=== PATIENT | female | born 1990 | race Caucasian/White ===

== ENCOUNTER 2022-09-04 10:57 | Emergency (ER) | payer OTHER, MEDICAID, SELFPAY ==
--- NOTE | ~2022-09-04 | XR_ITS ---
EXAMINATION: XR chest 2V CLINICAL INFORMATION: Reason for Exam cough/sob/sputum production COMPARISON: No prior chest x-ray available in our system for comparison at the time of this dictation. TECHNIQUE: XR chest 2V Lungs and Linda: Both lungs are clear. Pleura: Normal. Costophrenic angles are sharp. No pneumothorax. Heart: The heart is normal in size. Mediastinum: The mediastinum is within normal limits.. Bones: Skeletal structures included are normal for patient's age. XR/XR chest 2V IMPRESSION: Normal chest x-ray.
[2022-09-04 11:06] VITALS: BP 158/98; PULSE 97; RESP 18; TEMP 36.8; O2SAT 99; BMI 35.9
--- NOTE | 2022-09-04 11:08 | ED.GENADULT ---
HPI - General Adult General Chief complaint: Upper Respiratory Symptoms <CARIE Baeza - Last Filed: 09/04/22 11:09> Stated complaint: nasalcongestion <CARIE Baeza - Last Filed: 09/04/22 11:09> Time Seen by Provider: 09/04/22 12:12 <CARIE Baeza - Last Filed: 09/04/22 11:09> Source: patient <CARIE Alford - Last Filed: 09/04/22 14:06> Mode of arrival: ambulatory <CARIE Alford - Last Filed: 09/04/22 14:06> Limitations: no limitations <CARIE Alford Last Filed: 09/04/22 14:06> History of Present Illness HPI narrative: 31yoF presenting to the ER with URI complaints over the past 1-2 weeks worse today. She reports intermittent headaches, nasal congestion/rhinorrhea with sinus pressure pain And a intermittent productive cough. She reports her symptoms improve when she has fresh air goes outside. She reports some family members are positive for influenza. She denies any other sick contacts. She denies recent travel. She denies any fevers, neck pain/stiffness, trouble swallowing or breathing, sore throat, chest pain or shortness of breath, dyspnea on exertion, orthopnea, palpitations, paresthesias, nausea/vomiting/diarrhea, abdominal pain, back pain, flank pain, dysuria, lower extremity edema or calf tenderness, rashes or any other symptoms complaints or concerns at this time. <CARIE Alford - Last Filed: 09/04/22 14:06> MD complaint: URI complaints <CARIE Alford - Last Filed: 09/04/22 14:06> Onset (ago): week(s) (1-2 weeks ) <CARIE Alford Last Filed: 09/04/22 14:06> Related Data Home medications: Previous Rx's Medication Instructions Recorded albuterol sulfate 90 mcg/actuation 1 inh inhalation QID PRN shortness 09/04/22 aerosol inhaler of breath or wheezing #8.5 grams codeine 10 mg-guaifenesin 100 mg/5 5 ml PO Q6H PRN cold symptoms #120 09/04/22 mL oral liquid (Guaifenesin AC) mL doxycycline monohydrate 100 mg 100 mg PO BID Sinusitis 7 days #14 09/04/22 tablet tabs <CARIE Baeza - Last Filed: 09/04/22 11:09> Allergies/adverse reactions: Allergies Allergy/AdvReac Type Severity Reaction Status Date / Time cefaclor [From [facility]] Allergy Unknown UNKNOWN Verified 09/04/22 11:06 <CARIE Baeza - Last Filed: 09/04/22 11:09> Review of Systems Review of Systems: Constitutional : No Weight loss, No Fever, + Chills, No Night Sweats, + Fatigue, + Malaise ENT/Mouth : No Hearing loss, No Ear Pain, + Nasal Congestion, No Sinus Pain, No Hoarseness, No sore throat, + Rhinorrhea, No Swallowing Difficulty Eyes: No Eye Pain, No Swelling, No Redness, No Foreign Body, No Discharge, No Vision Changes Cardiovascular : No Chest Pain, No SOB, No Dyspnea on Exertion, No Orthopnea, No Edema, No Palpitations Respiratory : + Cough, + Sputum, No Wheezing, No Smoke Exposure, No Dyspnea Gastrointestinal : No Nausea, No Vomiting, No Diarrhea, No Constipation, No abdominal Pain, No Hematochezia, No Melena Genitourinary : no irregular bleeding, No Dysuria, No Urinary Frequency, No Hematuria, No Urinary Incontinence, No Urgency, No Flank Pain, No Urinary Flow Changes, No Hesitancy Musculoskeletal : No joint pain, + Myalgias, No Joint Swelling Skin : No Skin Lesions, No rash Neuro : No Weakness, No Numbness, No Paresthesias, No Loss of Consciousness, No Dizziness, + intermittent Headache Psych : No Anxiety/Panic, No Depression, No SI/HI/AH/VH, No Social Issues, Heme/Lymph: No Bruising, No Bleeding,No Lymphadenopathy Endocrine : No Polyuria, No Polydipsia, No Temperature Intolerance <CARIE Alford - Last Filed: 09/04/22 14:06> Yes all other systems are reviewed and are negative <CARIE Alford - Last Filed: 09/04/22 14:06> COUNT INCLUDES THE [facility] Past Medical History Attestation statement: The following information was validated with the patient. <CARIE Alford - Last Filed: 09/04/22 14:06> Source: old records reviewed and nursing notes reviewed <CARIE Alford - Last Filed: 09/04/22 14:06> Social History Social History: Social History Advance Directives: No Advance Directives Information Provided: No <CARIE Baeza - Last Filed: 09/04/22 11:09> Physical Exam ED Vital Signs: Vital Signs - 24 hr 09/04/22 11:06 Temperature 98.3 F Pulse Rate 97 Respiratory Rate 18 Blood Pressure 158/98 H Pulse Oximetry 99 Oxygen Delivery Method Room Air BMI result Body Mass Index 35.9 <CARIE Baeza - Last Filed: 09/04/22 11:09> Vital Signs - 24 hr 09/04/22 11:06 Temperature 98.3 F Pulse Rate 97 Respiratory Rate 18 Blood Pressure 158/98 H Pulse Oximetry 99 Oxygen Delivery Method Room Air BMI result Body Mass Index 35.9 vital signs have been reviewed as normal and appeared to be correct. Blood pressure 158/98. Heart rate normal. Respiration rate normal. Temperature normal. Oxygen saturation normal. <CARIE Alford - Last Filed: 09/04/22 14:06> Appearance: Alert. Oriented X3. No acute distress. Head: Normal external exam. Normocephalic. Atraumatic. Eyes: PERRLA. EOMI. Conjunctiva and sclera normal. Eyelids normal. ENT: EAC normal. TM's Normal. Patient with sinus pressure pain. Pharynx normal. Uvula midline. Moist mucous membranes. No lesions/ulcerations or masses noted on the tongue. Normal voice. No trismus noted. No drooling noted. No muffled voice noted. Neck: Normal inspection. Neck supple. FROM. No adenopathy. Thyroid Normal. No tracheal deviation noted. No crepitus is noted. No meningeal signs. No neck mass noted. No signs of trauma noted. CVS: Normal heart rate and rhythm. Heart sound normal. Pulses normal throughout. No murmurs/rales/gallops. Respiratory: No respiratory distress. Painless inspiration. Breath sounds normal. No wheezes/rales/rhonchi noted. Chest nontender. No crepitus is noted. No signs of trauma noted. No accessory muscle usage noted or decreased air movement noted. No signs of trauma. Abdomen: Soft and nontender. Back: Full range of motion noted. Nontender. Skin: Skin warm and dry. Normal skin color. Normal skin turgor. No rashes/lesions/lacerations noted. Extremities: Extremities exhibit normal range of motion and nontender. Neuro: Oriented X 3. No motor deficit. No sensory deficit. Reflexes normal. Normal steady gait. No focal neuro deficits noted. CN's II-XII intact bilaterally? Vascular: + radial pulses/+ 2 distal pedal pulses/+2 dorsalis pedis b/l. Normal cap refill. No cyanosis noted to upper extremity nails and lower extremity toes nails. <CARIE Alford - Last Filed: 09/04/22 14:06> Course Course Course Narrative: RME performed by Whitley Boyce PA-C. Edward is a 31 year old female presenting to the emergency department with nasal congestion. Patient states that since yesterday she has had nasal congestion and felt generally unwell. Patient states that she has had family members who are positive for influenza. COVID/RSV/Influenza swab ordered. Patient to be placed back in the waiting room pending results and room availability. <CARIE Baeza - Last Filed: 09/04/22 11:09> Reevaluation(s) Reevaluation #1: 31yoF presenting to the ER with URI complaints over the past 1-2 weeks worse today. She reports intermittent headaches, nasal congestion/rhinorrhea with sinus pressure pain And a intermittent productive cough. She reports her symptoms improve when she has fresh air goes outside. She reports some family members are positive for influenza. COVID/RSV/flu swab and chest x-ray ordered pending at this time. Will re-evaluate. <CARIE Alford - Last Filed: 09/04/22 14:06> Time: 12:20 <CARIE Alford Last Filed: 09/04/22 14:06> Reevaluation #2: - patient negative for COVID/RSV/flu. Chest x-ray is still pending although when I reviewed the chest x-ray appears normal. Therefore at this time will DC home with antibiotics and symptomatic treatment for possible sinusitis/bronchitis and instructions to follow-up with PCP and to return if any new or worsening symptoms. Patient understands agrees with this plan. <CARIE Alford - Last Filed: 09/04/22 14:06> Time: 13:48 <CARIE Alford - Last Filed: 09/04/22 14:06> Medical Decision Making Lab Data MDM Lab Attestation statement: I reviewed the patient's lab results. <CARIE Alford Last Filed: 09/04/22 14:06> Labs: Lab Results 09/04/22 Range/Units 11:36 Influenza Type A (PCR) NEGATIVE (Negative) Influenza Type B (PCR) NEGATIVE (Negative) RSV RNA Qual (PCR) NEGATIVE (Negative) SARS-CoV-2 RNA (RT-PCR) NEGATIVE (Negative) <CARIE Baeza - Last Filed: 09/04/22 11:09> Lab Results 09/04/22 Range/Units 11:36 Influenza Type A (PCR) NEGATIVE (Negative) Influenza Type B (PCR) NEGATIVE (Negative) RSV RNA Qual (PCR) NEGATIVE (Negative) SARS-CoV-2 RNA (RT-PCR) NEGATIVE (Negative) <CARIE Alford - Last Filed: 09/04/22 14:06> Independent Interpretation I performed an independent interpretation of an: Plain X-Ray <CARIE Alford Last Filed: 09/04/22 14:06> Interpretation: TECHNIQUE: XR chest 2V Lungs and Linda: Both lungs are clear. Pleura: Normal. Costophrenic angles are sharp. No pneumothorax. Heart: The heart is normal in size. Mediastinum: The mediastinum is within normal limits.. Bones: Skeletal structures included are normal for patient's age. XR/XR chest 2V IMPRESSION: Normal chest x-ray. <CARIE Alford Last Filed: 09/04/22 14:06> Radiology Impression Discussion of test interpretation with radiology: I have reviewed the radiologist's reading. <CARIE Alford Last Filed: 09/04/22 14:06> Discharge Plan Discharge Clinical Impression: Sinusitis, Bronchitis <CARIE Baeza Last Filed: 09/04/22 11:09> Patient Disposition: Home, Self-Care <CARIE Baeza Last Filed: 09/04/22 11:09> Instructions: Sinusitis (ED) <CARIE Baeza - Last Filed: 09/04/22 11:09> Prescriptions: New doxycycline monohydrate 100 mg tablet 100 mg PO BID 7 Days Qty: 14 0RF codeine-guaifenesin [Guaifenesin AC] 10-100 mg/5 mL liquid 5 ml PO Q6H PRN (Reason: cold symptoms) Qty: 120 0RF albuterol sulfate 90 mcg/actuation HFA aerosol inhaler 1 inh inhalation QID PRN (Reason: shortness of breath or wheezing) Qty: 8.5 0RF <CARIE Baeza - Last Filed: 09/04/22 11:09> Referrals: Physician,None [Primary Care Provider] - 2 days <CARIE Baeza - Last Filed: 09/04/22 11:09> Stand Alone Forms: Work/School Release <CARIE Baeza - Last Filed: 09/04/22 11:09> Interventions: ED Discharge Assessment Last Done: 09/04/22 13:48 <CARIE Baeza - Last Filed: 09/04/22 11:09> Discharge Date/Time: 09/04/22 13:49 <CARIE Baeza - Last Filed: 09/04/22 11:09>
[2022-09-04 12:29] LABS: Influenza A PCR NEGATIVE (Negative); Influenza B PCR NEGATIVE (Negative); Resp Syncy Virus RNA Qual PCR NEGATIVE (Negative); SARS COV2 PCR INHOUSE NEGATIVE (Negative)
== END 2022-09-04 13:49 | disposition home or self-care (01) ==
PROVIDERS: Emergency Provider Emergency Medicine
DX: J32.9 Chronic sinusitis, unspecified (principal); J40 Bronchitis, not specified as acute or chronic; Z20.828 Contact with and (suspected) exposure to other viral communicable diseases
CPT/HCPCS: 0241U; 71046; 99283

== ENCOUNTER 2023-06-22 08:40 | Emergency (ER) | payer OTHER, MEDICAID, SELFPAY ==
--- NOTE | ~2023-06-22 | CT_ITS ---
EXAMINATION: CT ABDOMEN AND PELVIS WITHOUT CONTRAST CLINICAL INFORMATION: 72-year-old female with epigastric and abdominal pain COMPARISON: None available. TECHNIQUE: Multidetector volumetric imaging was performed from the superior aspect of the liver through the pubic symphysis. Sagittal and coronal reformatted images were obtained on the technologist's workstation. This CT examination was performed using dose optimization techniques as appropriate, variously including the following: *Automated exposure control *Adjustment of mA and/or kV according to patient size (this includes techniques or standardized protocols for targeted exams where dose is matched to indication/reason for exam; i.e. extremities or head) *Use of iterative reconstruction technique DLP: 661.00 mGy-cm FINDINGS: LUNG BASES: The visualized lung bases are unremarkable. LIVER, GALLBLADDER, AND BILIARY TREE: Liver is of low attenuation without intrahepatic masses or ductal dilatation. The Gallbladder is well distended No evidence of cholelithiasis or cholecystitis PANCREAS: Unremarkable. SPLEEN: Unremarkable. ADRENAL GLANDS: Unremarkable. KIDNEYS AND URETERS: The kidneys are normal in size, shape, and attenuation. No hydronephrosis, hydroureter, or calculi seen. No perinephric stranding. BLADDER: Unremarkable. GASTROINTESTINAL TRACT: The small and large bowel are unremarkable. The appendix is unremarkable. ABDOMINAL WALL: There is small fat-containing umbilical hernia LYMPH NODES: Normal. VASCULAR: Unremarkable. PELVIC VISCERA: There is small amount of pelvic fluid identified. Ovaries are bilaterally enlarged with possible cysts or follicles. If clinically indicated follow-up by pelvic ultrasound. There is calcification in left adnexa OSSEOUS STRUCTURES: Unremarkable. CT/CT abdomen pelvis wo IV con IMPRESSION: 1. Hepatic steatosis. 2. Small amount of free fluid in the pelvis and prominent ovaries bilaterally. If clinically indicated follow-up by pelvic ultrasound. 3. Small fat-containing umbilical hernia. Fleischner guidelines were followed.
[2023-06-22 08:48] VITALS: BP 124/83; PULSE 97; RESP 18; TEMP 36.4; O2SAT 97; BMI 36.1
[2023-06-22 09:06] LABS: MANUAL DIFF FLAG NO
[2023-06-22 09:09] LABS: Basophils Percent Auto 0.4 % (0-2); Eosinophils Absolute Auto 0.1 X10*3/uL (0.0-0.4); Eosinophils Percent Auto 0.8 % (0-4); Hematocrit 40.1 % (37.0-47.0); Hemoglobin 13.3 g/dl (12.0-16.0); Imm Gran Abs Auto 0.02 X10*3/uL (0.00-0.03); Imm Gran Pct Auto 0.3 % (0.0-0.4); Lymphocytes Absolute Auto 1.3 X10*3/uL (1.2-4.9); Lymphocytes Percent Auto 18.2 % (20-40); Mean Corpuscular HGB Conc 33.2 g/dl (31.0-35.0); Mean Corpuscular Hemoglobin 30.2 pg (27.0-33.0); Mean Corpuscular Volume 91.1 fL (80.0-98.0); Mean Platelet Volume 10.9 fL (9.4-12.3); Monocytes Absolute Auto 0.7 X10*3/uL (0.1-1.2); Monocytes Percent Auto 10.1 % (2-11); Neutrophils Percent Auto 70.2 % (45-73); Platelet Count 284 X10*3/uL (160-400); Red Cell Distribution Width 13.3 % (11.0-16.0); White Blood Count 7.1 X10*3/uL (4.8-10.8)
[2023-06-22 09:25] LABS: Alanine Aminotransferase 13 U/L (0-31); Albumin Level 4.1 g/dL (3.5-5.0); Alkaline Phosphatase 62 U/L (39-117); Anion Gap 15 (12-20); Aspartate Amino Transferase 19 U/L (5-31); Bilirubin Direct 0.2 mg/dL (0.0-0.5); Bilirubin Total 0.6 mg/dL (0.0-1.0); Blood Urea Nitrogen 8 mg/dL (9-16); Calcium 9.4 mg/dL (8.4-10.2); Carbon Dioxide 23 mmol/L (22-29); Chloride 105 mmol/L (96-108); Creatinine Clr Calc Pharmacy 106.2; Estimated Glomerular Filt Rate > 60; Glucose Random 91 mg/dL (60-115); Lipase 11 U/L (8-78); Potassium 3.7 mmol/L (3.3-5.1); Sodium 139 mmol/L (135-145); Total Protein 7.3 g/dL (6.5-8.0)
--- NOTE | 2023-06-22 09:34 | ED_ITS ---
HPI - Abdominal Pain General Chief Complaint: Abdominal Pain Stated Complaint: Abd pain/Headache Time Seen by Provider: 06/22/23 09:28 Source: patient Mode of arrival: ambulatory Limitations: no limitations History of Present Illness HPI narrative: 32 year old female with no significant pmhx presents to the ED this morning with sharp abdominal pain x2 days. Patient reports flying back from [place] 2 days ago, eat at [employer] at [place] and 45 minutes later while driving began to have sharp abdominal pain. Pain was intermittent and became constant yesterday. Describes this as a sharp, stabbing pain that originated in her left lower quadrant and moved to her epigastric region. Pain is worse with movement. Additionally endorses 2 episodes of loose stools. Reports brushing her teeth with the water in [place]. No hematochezia or melena. Last BM yesterday morning. Passed gas this morning. Admits to right frontal migraine headache intermittently over the last few days. Has a history of migraines and feels like her typical. Denies anorexia. fever, chills, dizziness, sore throat, cough, shortness of breath, wheezing, nausea or vomiting, dysuria, hematuria, vaginal discharge, lower extremity pain swelling. States she is sexually active however no concern for STIs. History of tubal ligation. Related Data Previous Rx's Medication Instructions Recorded albuterol sulfate 90 mcg/actuation 1 inh inhalation QID PRN shortness 09/04/22 aerosol inhaler of breath or wheezing #8.5 grams codeine 10 mg-guaifenesin 100 mg/5 5 ml PO Q6H PRN cold symptoms #120 09/04/22 mL oral liquid (Guaifenesin AC) mL doxycycline monohydrate 100 mg 100 mg PO BID Sinusitis 7 days #14 09/04/22 tablet tabs Allergies Allergy/AdvReac Type Severity Reaction Status Date / Time cefaclor [From [facility]] Allergy Unknown UNKNOWN Verified 09/04/22 11:06 Review of Systems Review of Systems Constitutional: No fever, chills, fatigue, night sweats, weight changes ENT/Mouth: No ear pain, hearing loss, nasal congestion, sinus pain, rhinorrhea, sore throat Eyes: No eye pain, swelling, redness, vision changes, discharge Cardio: No chest pain, palpitations, PICKETT, orthopnea, peripheral edema Pulm: No SOB, cough, sputum, wheezing, dyspnea, hemoptysis GI: No nausea, vomiting, hematemesis, +abdominal pain, +diarrhea, No constipation, hematochezia, melena : No irregular bleeding, dysuria, frequency, urgency, hesitancy, hematuria, flank pain MSK: No back pain, neck pain, joint pain, myalgias Skin: No lesions, rashes Neuro: No weakness, numbness, paresthesias, LOC, dizziness, +headache All other systems reviewed and are negative. [facility] Past Medical History Attestation statement: The following information was validated with the patient. Source: old records reviewed and nursing notes reviewed Social History Social History Smoked in Last 30 Days: No Use of substances other than those prescribed or required for medical reasons: Yes Substance Use Type: Marijuana Substance Use Frequency: Occasionally Advance Directives: No Advance Directives Information Provided: No Physical Exam ED Vital Signs: Vital Signs - 24 hr 06/22/23 08:48 06/22/23 10:00 Temperature 97.5 F Pulse Rate 97 Respiratory Rate 18 16 Blood Pressure 124/83 Pulse Oximetry 97 Oxygen Delivery Method Room Air BMI result Body Mass Index 36.1 Vital signs stable. Const General: cooperative, healthy appearing, comfortable, no acute distress, alert and awake; No diaphoretic Nutritional Appearance: average body habitus Orientation/consciousness: patient oriented x3 Limitations: no limitations [facility] Head: Yes normal to inspection Ears: hearing grossly normal bilaterally General nose exam: Normal external nose present Mouth: Normal oral and palatal mucosa present and moist mucous membranes Throat: Yes posterior oropharynx normal, Yes tonsils normal, Yes uvula midline and Yes abnormal tonsil Eyes General: appearance normal, both eyes and all related structures Conjunctivae: conjunctivae normal Sclerae: sclerae normal Pupils: Equal, round and reactive pupils present EOM: EOMs intact bilaterally Neck Neck: Yes normal visual inspection, Yes no lymphadenopathy and Yes no meningeal signs Resp Effort & Inspection: normal respiratory effort and able to speak in complete sentences Auscultation: clear to auscultation bilaterally Cardio Rate: regular rate Rhythm: regular rhythm Peripheral pulses: radial pulses present GI Other: + Abdomen is soft, nondistended, tender to palpation of the epigastric region and left lower quadrant. No rebound tenderness or guarding. Normoactive bowel sounds x4. Inspection: Yes normal to inspection Rectal Exam - Female: deferred General: Yes no CVA tenderness Back/Spine/Pelvis Back: no CVA tenderness Skin General skin exam: no rashes or lesions noted Neuro General: patient oriented x3, gait normal, moves all extremities and no meningeal signs Cranial nerves: Yes CN's II-XII intact bilaterally and Yes Equal, round and reactive pupils present Extrem General: Yes normal to inspection and Yes full ROM Course Course Course Narrative: 1003-- CBC without leukocytosis or anemia. Chemistry without acute electrolyte abnormalities requiring intervention. Lipase WNL. Pending COVID, UA, CT abdomen pelvis. 1220-- COVID negative. Urine without infection or . CT abdomen/ pelvis showing bilateral ovarian cyst with small amount of free fluid, likely cyst rupture. Also shows fatty liver and a small fat containing umbilical hernia that is not appreciated on physical exam. I discussed workup with patient. Informed her of CT results. Advised her to follow-up with her quality control engineering technician regarding findings. > Patient's symptoms are most consistent with gastroenteritis. Advised her to increase her fluid intake and take Pepto-Bismol as needed. Discussed return precautions. All questions answered at this time. Patient agreeable disposition and stable for discharge. Medical Decision Making Medical Decision Making [facility] Narrative: 32 year old female with no significant pmhx presents to the ED this morning with sharp abdominal pain x2 days. VSS, afebrile. Abdomen is soft, nondistended, tender to palpation over the epigastric regoin and left lower quadrant without rebound tenderness or guarding. Exam nonfocal. Clinical concern for traveler's diarrhea vs dehydration vs viral syndrome vs covid vs gastroenteritis vs UTI vs constipation. Concern for migraine vs tension SAMANIEGO. Lower suspicion for pancreatitis, cholecystitis, diverticulitis, diverticulosis, IBD, appendicitis. unlikely intrauterine , ectopic , ovarian cyst or rupture, ovarian torsion, nephrolithiasis, pyelonephritis, PID. Unlikely SBO, ischemic bowel, or acute abdomen. Differential Diagnosis Differential Diagnoses: The differential diagnosis associated with the presentation includes As above. Admission/Observation Not indicated. Lab Data [facility] Lab Attestation statement: I reviewed the patient's lab results. As above. 06/22/23 08:58 06/22/23 08:58 Labs: Lab Results 10/18/23 10/18/23 10/18/23 Range/Units 08:58 10:15 10:20 WBC 7.1 (4.8-10.8) X10*3/uL RBC 4.40 (4.20-5.50) X10*6/uL Hgb 13.3 (12.0-16.0) g/dl Hct 40.1 (37.0-47.0) % MCV 91.1 (80.0-98.0) fL MCH 30.2 (27.0-33.0) pg MCHC 33.2 (31.0-35.0) g/dl RDW 13.3 (11.0-16.0) % Plt Count 284 (160-400) X10*3/uL MPV 10.9 (9.4-12.3) fL Immature Gran % (Auto) 0.3 (0.0-0.4) % Neut % (Auto) 70.2 (45-73) % Lymph % (Auto) 18.2 L (20-40) % [place] % (Auto) 10.1 (2-11) % Eos % (Auto) 0.8 (0-4) % Baso % (Auto) 0.4 (0-2) % Lymph # (Auto) 1.3 (1.2-4.9) X10*3/uL [place] # (Auto) 0.7 (0.1-1.2) X10*3/uL Eos # (Auto) 0.1 (0.0-0.4) X10*3/uL Baso # (Auto) 0.0 (0.0-0.2) X10*3/uL Abs Immat Gran (auto) 0.02 (0.00-0.03) X10*3/uL Absolute Neuts (auto) 5.0 (2.0-8.3) x10*3/uL Absolute Nucleated RBC 0.000 (0.0-0.012) X10*3/uL Nucleated RBC % (auto) 0.0 (0.0-0.2) /100WBC Sodium 139 (135-145) mmol/L Potassium 3.7 (3.3-5.1) mmol/L Chloride 105 (96-108) mmol/L Carbon Dioxide 23 (22-29) mmol/L Anion Gap 15 (12-20) BUN 8 L (9-16) mg/dL Creatinine 0.76 (0.5-1.4) mg/dL Estim Creat Clear Calc 106.2 Estimated GFR > 60 Random Glucose 91 (60-115) mg/dL Calcium 9.4 (8.4-10.2) mg/dL Magnesium 1.9 (1.6-2.6) mg/dL Total Bilirubin 0.6 (0.0-1.0) mg/dL Direct Bilirubin 0.2 (0.0-0.5) mg/dL AST 19 (5-31) U/L ALT 13 (0-31) U/L Alkaline Phosphatase 62 (39-117) U/L Total Protein 7.3 (6.5-8.0) g/dL Albumin 4.1 (3.5-5.0) g/dL Lipase 11 (8-78) U/L Urine Color Yellow Urine Appearance Clear Urine pH 6.5 (5.0-9.0) Ur Specific [place] 1.010 (1.005-1.025) Urine Protein Negative (Neg-Trace) mg/dL Urine Glucose (UA) Negative (Negative) mg/dL Urine Ketones Negative (Negative) mg/dL Urine Blood Negative (Negative) Urine Nitrite Negative (Negative) Ur Leukocyte Esterase Negative (Negative) Urine Test NEGATIVE (NEGATIVE) COVID-19 (MATIAS) Negative (Negative) COVID-19 Clin Com See Note Independent Interpretation I performed an independent interpretation of an: CT Scan Interpretation: CT abdomen/pelvis without intraabdominal pathology, agree with radiologist's interpretation. Radiology Impression Discussion of test interpretation with radiology: I have reviewed the radiologist's reading. Radiologist Impression: CT abdomen pelvis wo IV con IMPRESSION: 1. Hepatic steatosis. 2. Small amount of free fluid in the pelvis and prominent ovaries bilaterally. If clinically indicated follow-up by pelvic ultrasound. 3. Small fat-containing umbilical hernia. Fleischner guidelines were followed. External Record Review External record reviewed: Inpatient record Prescription Management I considered prescription management with: Pain Medication Chronic Conditions Patient?s care impacted by: Other (migraine headache) Social Determinants Patient?s care significantly limited by Social Determinants of Health including: Other Social Determinant of Health Medications Administered Discontinued Medications Generic Name Dose Route Start Last Admin Trade Name Freq PRN Reason Stop Dose Admin Diphenhydramine HCl 50 mg 06/22/23 09:51 06/22/23 10:08 Diphenhydramine Hcl 25 Mg Capsule PO 06/22/23 09:52 50 mg ONCE ONE Administration Ketorolac Tromethamine 30 mg 06/22/23 09:51 06/22/23 10:10 Ketorolac Tromethamine 30 Mg/Ml Vial IM 06/22/23 09:52 30 mg ONCE ONE Administration Metoclopramide HCl 5 mg 06/22/23 09:51 06/22/23 10:09 Metoclopramide Hcl 5 Mg Tablet PO 06/22/23 09:52 5 mg ONCE ONE Administration Critical Care Time Critical Care Time Critical Care Time: No Discharge Plan Discharge Clinical Impression: Gastroenteritis Patient Disposition: Home, Self-Care Instructions: Traveler's Diarrhea (ED), Gastroenteritis (ED) Additional Instructions: Your lab workup today was reassuring.? Your urine test was negative for infection and .? The CT on your of your abdomen showed small ovarian cyst and a small amount of free fluid around your ovaries which could indicate cyst rupture. Please follow-up with your quality control engineering technician regarding these findings. Your symptoms are most consistent with a viral stomach bug, also known as gastroenteritis.? The treatment for this is supportive care. Symptoms usually resolve on their own in 48-72 hours.? The recommendation is rest and lots of oral hydration.? Stick to a bland diet like soup and toast while you are not feeling well.?? You can also try over the counter Pepto Bismol or Imodium as needed for upset stomach and diarrhea.? Follow up with your primary care provider as needed. If you develop new or worsening symptoms call 911 or come back to the ER for further evaluation. Prescriptions: No Action doxycycline monohydrate 100 mg tablet 100 mg PO BID 7 Days Qty: 14 0RF codeine-guaifenesin [Guaifenesin AC] 10-100 mg/5 mL liquid 5 ml PO Q6H PRN (Reason: cold symptoms) Qty: 120 0RF albuterol sulfate 90 mcg/actuation HFA aerosol inhaler 1 inh inhalation QID PRN (Reason: shortness of breath or wheezing) Qty: 8.5 0RF Referrals: [facility] [Primary Care Provider] - Stand Alone Forms: Work/School Release Interventions: ED Discharge Assessment Last Done: 06/22/23 12:35 Discharge Date/Time: 06/22/23 12:35
[2023-06-22 10:00] VITALS: RESP 16
[2023-06-22] MEDS: diphenhydrAMINE HCL 25 MG CAPSULE 50 MG PO (10:08)
[2023-06-22] MEDS: Metoclopramide HCl 5 MG TABLET PO (10:09)
[2023-06-22] MEDS: Ketorolac Tromethamine 30 MG/ML VIAL IM (10:10)
[2023-06-22 10:25] LABS: Appearance Urine Clear; Color Urine Yellow; Glucose Urine UA Negative (Negative); Leukocyte Esterase Urine Negative (Negative); Nitrite Urine Negative (Negative); PH 6.5 (5.0-9.0); Urine Blood Negative (Negative); Urine Ketones Negative (Negative); Urine Protein Negative (Neg-Trace)
[2023-06-22 10:28] LABS: UPreg QC Valid YES; Urine Pregnancy NEGATIVE (NEGATIVE)
[2023-06-22 10:32] LABS: Magnesium 1.9 mg/dL (1.6-2.6)
[2023-06-22 10:44] LABS: COVID-19 Test Negative (Negative); IDNOW Serial# BCCEAD1C
== END 2023-06-22 12:35 | disposition home or self-care (01) ==
PROVIDERS: Physician Assistant Medical; Emergency Provider Emergency Medicine Emergency Medical Services
DX: K52.9 Noninfective gastroenteritis and colitis, unspecified (principal); R51.9 Headache, unspecified; R10.13 Epigastric pain; R10.32 Left lower quadrant pain; Z11.52 Encounter for screening for COVID-19; Z20.822 Contact with and (suspected) exposure to COVID-19; Z79.899 Other long term (current) drug therapy
CPT/HCPCS: 36415; 74176; 80048; 80076; 81003; 81025; 83690; 83735; 85025; 87635; 96372; 99284; J1885

== ENCOUNTER 2023-10-03 12:27 | Emergency (ER) | payer OTHER, MEDICAID, SELFPAY ==
--- NOTE | ~2023-10-03 | CT_ITS ---
EXAMINATION: CT ABDOMEN AND PELVIS WITHOUT CONTRAST CLINICAL INFORMATION: Epigastric pain COMPARISON: Previous CT of the abdomen and pelvis June 2023 TECHNIQUE: Multidetector volumetric imaging was performed from the superior aspect of the liver through the pubic symphysis. Sagittal and coronal reformatted images were obtained on the technologist's workstation. This CT examination was performed using dose optimization techniques as appropriate, variously including the following: *Automated exposure control *Adjustment of mA and/or kV according to patient size (this includes techniques or standardized protocols for targeted exams where dose is matched to indication/reason for exam; i.e. extremities or head) *Use of iterative reconstruction technique DLP: 64 8 mGy-cm FINDINGS: LUNG BASES: The visualized lung bases are unremarkable. LIVER, GALLBLADDER, AND BILIARY TREE: The liver is normal in size, shape, and attenuation. No focal hepatic lesion or biliary ductal dilatation is present. The gallbladder is unremarkable with no evidence of radiopaque gallstones, gallbladder wall thickening, or obvious pericholecystic inflammatory changes. PANCREAS: Unremarkable. SPLEEN: Unremarkable. ADRENAL GLANDS: Unremarkable. KIDNEYS AND URETERS: The kidneys are normal in size, shape, and attenuation. No hydronephrosis, hydroureter, or calculi seen. No perinephric stranding. BLADDER: Unremarkable. GASTROINTESTINAL TRACT: The small and large bowel are unremarkable. The appendix is unremarkable. ABDOMINAL WALL: Umbilical hernia containing fat. LYMPH NODES: Normal. VASCULAR: Unremarkable. PELVIC VISCERA: Unremarkable. OSSEOUS STRUCTURES: Unremarkable. CT/CT abdomen pelvis wo IV con IMPRESSION: Small umbilical hernia containing fat otherwise unremarkable exam. Fleischner guidelines were followed.
--- NOTE | ~2023-10-03 | US_ITS ---
EXAMINATION: US ABDOMEN LIMITED CLINICAL INFORMATION: Right upper quadrant pain. COMPARISON: CT abdomen pelvis dated 10/03/2023. TECHNIQUE: Real-time imaging of the right upper quadrant abdominal viscera. FINDINGS: PANCREAS: Normal. LIVER: Normal. The liver is normal in size. The liver contour is normal. Parenchymal echogenicity is normal. No focal hepatic lesion. There is no intrahepatic biliary duct dilatation seen. GALLBLADDER: Normal. The gallbladder is physiologically distended without evidence of stones, sludge, polyps, wall thickening or pericholecystic fluid. COMMON BILE DUCT: Normal in caliber measuring 0.2 cm in diameter. RIGHT KIDNEY: Normal. No hydronephrosis. No renal calculi or focal parenchymal lesions. The kidney measures 10.8 cm in maximum dimension. FREE FLUID: None. US/US abdomen limited IMPRESSION: Normal right upper quadrant ultrasound.
[2023-10-03 12:42] VITALS: BP 124/77; PULSE 112; RESP 17; TEMP 36.7; O2SAT 98; BMI 36.4
--- NOTE | 2023-10-03 12:44 | ED.GENADULT ---
HPI - General Adult General Chief complaint: Abdominal Pain Stated complaint: abd pain nausea Time Seen by Provider: 10/03/23 18:16 Source: patient Mode of arrival: ambulatory Limitations: no limitations History of Present Illness HPI narrative: Patient is a 32 year old female who presents emergency department for evaluation of epigastric/right upper quadrant abdominal pain and nausea with onset of symptoms last night. Pain has been constant in nature with varying intensity, she does note that when she is lying supine and resting it is typically not as bothersome but when she begins moving pain increases. She denies any fevers, chills, vomiting, chest pain, shortness of breath, constipation, diarrhea, hematochezia, melena. Denies genitourinary symptoms, abnormal vaginal bleeding/discharge. Reports history of tubal ligation, denies possibility of , LMP 09/10/2023. She does state that she was away on vacation over the weekend, and states that she consumed seafood, she is uncertain whether this may be the etiology for her symptoms. She reports a history of similar episode in the past when she had ?traveler's diarrhea? after vacation to [place]. Related Data Previous Rx's Medication Instructions Recorded albuterol sulfate 90 mcg/actuation 1 inh inhalation QID PRN shortness 09/04/22 aerosol inhaler of breath or wheezing #8.5 grams codeine 10 mg-guaifenesin 100 mg/5 5 ml PO Q6H PRN cold symptoms #120 09/04/22 mL oral liquid (Guaifenesin AC) mL doxycycline monohydrate 100 mg 100 mg PO BID Sinusitis 7 days #14 09/04/22 tablet tabs aluminum-mag hydroxide-simethicone 5 ml PO QID PRN indigestion #3,000 10/03/23 400 mg-400 mg-40 mg/5 mL oral susp mL (Maalox Maximum Strength) ondansetron 4 mg disintegrating 4 mg PO Q8H PRN nausea and 10/03/23 tablet vomiting #14 tabs Allergies Allergy/AdvReac Type Severity Reaction Status Date / Time cefaclor [From [facility]] Allergy Unknown UNKNOWN Verified 09/04/22 11:06 Review of Systems Review of Systems: Yes all other systems are reviewed and are negative PMFSH Past Medical History Attestation statement: The following information was validated with the patient. Source: old records reviewed Social History Social History Substance Use Type: Marijuana Advance Directives: No Advance Directives Information Provided: No Physical Exam ED Vital Signs: Vital Signs - 24 hr 10/03/23 12:42 10/03/23 18:50 10/03/23 20:13 Temperature 98.1 F 98.2 F 97.9 F Pulse Rate 112 H 91 94 Respiratory Rate 17 16 16 Blood Pressure 124/77 117/77 117/62 Pulse Oximetry 98 98 97 Oxygen Delivery Method Room Air Room Air Room Air BMI result Body Mass Index 36.4 Appearance: Alert.?Oriented to person, place and time. No acute distress.?Normal affect. Eyes: Pupils equal, round and reactive to light.? ENT: Pharynx normal.?? Neck: Normal inspection.? Neck supple.?? CVS: Heart sounds normal. Normal heart rate and rhythm.? Pulses normal.?? Respiratory: No respiratory distress.? Lung sounds clear to auscultation bilaterally?? Abdomen: Soft a with right upper quadrant and epigastric tenderness upon palpation, negative Bryant sign. Normoactive bowel sounds. No pulsatile mass.?? Skin: Skin warm and dry.? Normal skin color.? Normal skin turgor.?? Extremities: No lower extremity edema.? No calf ttp? Neuro: Moves all extremities spontaneously. Sensation intact bilaterally. No focal neuro deficits. Ambulates with normal steady gait. Course Course Course Narrative: RME:?32 yo female, hx of hepatic steatosis, umbilical hernia, here for evaluation of intermittent epigastric abd pain since last night, worsening this morning. pain does not worsen w/ PO intake. Admits to dec PO intake, nausea w/o vomiting. Last BM yesterday. states it feels like morning sickness . hx of b/l tubal ligation. lmp 09/20/23. no other abd surgeries. endorses occasional etoh consumption. denies illicit substance use. Labs, UA ordered in trage. Full HPI, ROS and PE to be performed by the primary ED provider. Reevaluation(s) Reevaluation #1: CBC reveals mild leukocytosis of 12.3 with left shift, no anemia. CMP unremarkable, lipase within normal limits. Inflammatory markers including ESR within normal range, mild elevation of CRP at 0.93, nonspecific. Urinalysis without evidence of infection or microscopic hematuria. HCG negative. COVID-19/in[address] of the abdomen and pelvis reveals a small umbilical hernia containing fat, no evidence of strangulation, otherwise unremarkable CT AP. Given history and physical examination plan to obtain ultrasound for further evaluation to exclude cholecystitis/cholelithiasis, patient received 1 L IV fluids in addition to Zofran IV and Toradol for pain. Time: 18:43 Reevaluation #2: US unremarkable. Reports improvement in symptoms. Tolerating water and clary jessica and crackers without complication. Stable for discharge home. Outpatient follow-up with primary care provider. Discussed worrisome signs and symptoms that would warrant re-evaluation in the emergency department. All questions answered. Time: 20:56 Medications Administered Discontinued Medications Generic Name Dose Route Start Last Admin Trade Name Freq PRN Reason Stop Dose Admin Sodium Chloride 1,000 mls @ 999 mls/hr 10/03/23 18:45 10/03/23 19:52 Ns IV 10/03/23 19:45 Infused .Q1H1M DEVORA Infusion Ketorolac Tromethamine 15 mg 10/03/23 18:32 10/03/23 18:51 Ketorolac Tromethamine 15 Mg/Ml Vial IVPUSH 10/03/23 18:33 15 mg ONCE ONE Administration Ondansetron HCl 4 mg 10/03/23 18:32 10/03/23 18:51 Ondansetron Hcl 4 Mg/2 Ml Vial IVPUSH 10/03/23 18:33 4 mg ONCE ONE Administration Medical Decision Making Medical Decision Making MDM Narrative: Patient is a 32-year-old female who presents emergency department for evaluation of abdominal pain and nausea as per HPI. Examination notable for right upper quadrant/epigastric tenderness upon palpation with negative Bryant sign. Overall she appears well, nontoxic, afebrile. Initially was noted to be mildly tachycardic. Will obtain CBC to evaluate for leukocytosis/ anemia, CMP and lipase to evaluate for abnormal electrolytes /abnormal renal function/ abnormal hepatic/biliary function, CT AP and Urinalysis. Differential Diagnosis Differential Diagnoses: The differential diagnosis associated with the presentation includes (Gastritis, GERD, PUD, cholecystitis, biliary colic. Less likely SBO, appendicitis, diverticulitis,) Admission/Observation Consideration of admission/observation: Escalation of care including admission/observation considered (See narrative above and course narrative for further detail) Lab Data MDM Lab Attestation statement: I reviewed the patient's lab results. (See course narrative for further detail) 10/03/23 12:53 10/03/23 12:53 Labs: Lab Results 10/03/23 10/03/23 Range/Units 12:53 12:57 WBC 12.3 H (4.8-10.8) X10*3/uL RBC 4.41 (4.20-5.50) X10*6/uL Hgb 13.3 (12.0-16.0) g/dl Hct 40.2 (37.0-47.0) % MCV 91.2 (80.0-98.0) fL MCH 30.2 (27.0-33.0) pg MCHC 33.1 (31.0-35.0) g/dl RDW 13.6 (11.0-16.0) % Plt Count 282 (160-400) X10*3/uL MPV 11.3 (9.4-12.3) fL Immature Gran % (Auto) 0.5 H (0.0-0.4) % Neut % (Auto) 87.8 H (45-73) % Lymph % (Auto) 6.8 L (20-40) % [place] % (Auto) 4.4 (2-11) % Eos % (Auto) 0.3 (0-4) % Baso % (Auto) 0.2 (0-2) % Lymph # (Auto) 0.8 L (1.2-4.9) X10*3/uL [place] # (Auto) 0.5 (0.1-1.2) X10*3/uL Eos # (Auto) 0.0 (0.0-0.4) X10*3/uL Baso # (Auto) 0.0 (0.0-0.2) X10*3/uL Abs Immat Gran (auto) 0.06 H (0.00-0.03) X10*3/uL Absolute Neuts (auto) 10.8 H (2.0-8.3) x10*3/uL Absolute Nucleated RBC 0.000 (0.0-0.012) X10*3/uL Nucleated RBC % (auto) 0.0 (0.0-0.2) /100WBC ESR 10 (0-20) MM/HR Sodium 140 (135-145) mmol/L Potassium 3.7 (3.3-5.1) mmol/L Chloride 106 (96-108) mmol/L Carbon Dioxide 25 (22-29) mmol/L Anion Gap 13 (12-20) BUN 13 (9-16) mg/dL Creatinine 0.76 (0.5-1.4) mg/dL Estim Creat Clear Calc 106.7 Estimated GFR > 60 Random Glucose 91 (60-115) mg/dL Calcium 9.4 (8.4-10.2) mg/dL Magnesium 1.7 (1.6-2.6) mg/dL Total Bilirubin 0.7 (0.0-1.0) mg/dL AST 17 (5-31) U/L ALT 12 (0-31) U/L Alkaline Phosphatase 65 (39-117) U/L C-Reactive Protein 0.93 H (< or = 0.50) mg/dL Total Protein 7.2 (6.5-8.0) g/dL Albumin 4.1 (3.5-5.0) g/dL Lipase 15 (8-78) U/L Urine Color Yellow Urine Appearance Clear Urine pH 6.0 (5.0-9.0) Ur Specific [place] 1.025 (1.005-1.025) Urine Protein Negative (Neg-Trace) mg/dL Urine Glucose (UA) Negative (Negative) mg/dL Urine Ketones Negative (Negative) mg/dL Urine Blood Negative (Negative) Urine Nitrite Negative (Negative) Ur Leukocyte Esterase Negative (Negative) Urine Test NEGATIVE (NEGATIVE) COVID-19 (MATIAS) Negative (Negative) COVID-19 Clin Com See Note Influenza Type A (CHIDI) Negative (Negative) Influenza Type B (CHIDI) Negative (Negative) Influenza A & B Note See Note Independent Interpretation I performed an independent interpretation of an: Ultrasound and CT Scan Radiology Impression Discussion of test interpretation with radiology: I have reviewed the radiologist's reading. Radiologist Impression: CT/CT abdomen pelvis wo IV con IMPRESSION: Small umbilical hernia containing fat otherwise unremarkable exam. Fleischner guidelines were followed. US/US abdomen limited IMPRESSION: Normal right upper quadrant ultrasound. Independent Historian Clinical information obtained from an independent historian. History obtained from or confirmed by: Other (Mother who confirms history) External Record Review External record reviewed: Outpatient record Discharge Plan Discharge Clinical Impression: Gastritis Patient Disposition: Home, Self-Care Instructions: Gastritis (ED) Additional Instructions: CT scan reveals that you have a small hernia around her belly button, though I do not suspect that this is the cause for your symptoms. Ultrasound today did not show any evidence of inflammation to the gallbladder or gallstones as we talked about. At this time is suspect that your symptoms are most consistent with gastritis, which is an inflammatory condition. It is recommended that you consume a bland diet over the next few days, and stay well hydrated drinking plenty of fluids. I have sent a prescription for Zofran to your pharmacy to use as needed for nausea in addition to Maalox for your discomfort. Please contact your primary care provider and arrange for a follow-up visit within 3 days. Return back to emergency department any new or worsening symptoms or concerns. Prescriptions: New ondansetron 4 mg tablet,disintegrating 4 mg PO Q8H PRN (Reason: nausea and vomiting) Qty: 14 0RF alum-mag hydroxide-simeth [Maalox Maximum Strength] 400-400-40 mg/5 mL suspension 5 ml PO QID PRN (Reason: indigestion) Qty: 3000 0RF No Action doxycycline monohydrate 100 mg tablet 100 mg PO BID 7 Days Qty: 14 0RF codeine-guaifenesin [Guaifenesin AC] 10-100 mg/5 mL liquid 5 ml PO Q6H PRN (Reason: cold symptoms) Qty: 120 0RF albuterol sulfate 90 mcg/actuation HFA aerosol inhaler 1 inh inhalation QID PRN (Reason: shortness of breath or wheezing) Qty: 8.5 0RF Referrals: Physician,None [Primary Care Provider] - Interventions: ED Discharge Assessment Last Done: 10/03/23 21:29 Discharge Date/Time: 10/03/23 21:30
[2023-10-03 13:03] LABS: MANUAL DIFF FLAG NO
[2023-10-03 13:05] LABS: Appearance Urine Clear; Color Urine Yellow; Glucose Urine UA Negative (Negative); Leukocyte Esterase Urine Negative (Negative); Nitrite Urine Negative (Negative); Specific Gravity - Urine 1.025 (1.005-1.025); Urine Blood Negative (Negative); Urine Ketones Negative (Negative); Urine Protein Negative (Neg-Trace)
[2023-10-03 13:06] LABS: Basophils Percent Auto 0.2 % (0-2); Eosinophils Percent Auto 0.3 % (0-4); Hematocrit 40.2 % (37.0-47.0); Hemoglobin 13.3 g/dl (12.0-16.0); Imm Gran Abs Auto 0.06 X10*3/uL (0.00-0.03); Imm Gran Pct Auto 0.5 % (0.0-0.4); Lymphocytes Absolute Auto 0.8 X10*3/uL (1.2-4.9); Lymphocytes Percent Auto 6.8 % (20-40); Mean Corpuscular HGB Conc 33.1 g/dl (31.0-35.0); Mean Corpuscular Hemoglobin 30.2 pg (27.0-33.0); Mean Corpuscular Volume 91.2 fL (80.0-98.0); Mean Platelet Volume 11.3 fL (9.4-12.3); Monocytes Absolute Auto 0.5 X10*3/uL (0.1-1.2); Monocytes Percent Auto 4.4 % (2-11); Neutrophils Absolute Auto 10.8 x10*3/uL (2.0-8.3); Neutrophils Percent Auto 87.8 % (45-73); Platelet Count 282 X10*3/uL (160-400); Red Blood Count 4.41 X10*6/uL (4.20-5.50); Red Cell Distribution Width 13.6 % (11.0-16.0); White Blood Count 12.3 X10*3/uL (4.8-10.8)
[2023-10-03 13:06] LABS: UPreg QC Valid YES; Urine Pregnancy NEGATIVE (NEGATIVE)
[2023-10-03 13:17] LABS: Alanine Aminotransferase 12 U/L (0-31); Albumin Level 4.1 g/dL (3.5-5.0); Alkaline Phosphatase 65 U/L (39-117); Anion Gap 13 (12-20); Aspartate Amino Transferase 17 U/L (5-31); Bilirubin Total 0.7 mg/dL (0.0-1.0); Blood Urea Nitrogen 13 mg/dL (9-16); C Reactive Protein 0.93 mg/dL (< or = 0.50); Calcium 9.4 mg/dL (8.4-10.2); Carbon Dioxide 25 mmol/L (22-29); Chloride 106 mmol/L (96-108); Creatinine Clr Calc Pharmacy 106.7; Estimated Glomerular Filt Rate > 60; Glucose Random 91 mg/dL (60-115); Lipase 15 U/L (8-78); Magnesium 1.7 mg/dL (1.6-2.6); Potassium 3.7 mmol/L (3.3-5.1); Sodium 140 mmol/L (135-145); Total Protein 7.2 g/dL (6.5-8.0)
[2023-10-03 13:28] LABS: COVID-19 Test Negative (Negative); IDNOW Serial# 08D9AD1C; IDNOW Serial# 152EDE1D; Influenza A Negative (Negative); Influenza B2 Negative (Negative)
[2023-10-03 13:47] LABS: Erythrocyte Sedimentation Rate 10 MM/HR (0-20)
[2023-10-03 18:50] VITALS: BP 117/77; PULSE 91; RESP 16; TEMP 36.8; O2SAT 98
[2023-10-03] MEDS: 0.9 % Sodium Chloride 1,000 ML 999 ML IV (18:51)
[2023-10-03] MEDS: Ketorolac Tromethamine 15 MG/ML VIAL IVPUSH (18:51)
[2023-10-03] MEDS: ondansetron HCL 4 MG/2 ML VIAL IVPUSH (18:51)
--- NOTE | 2023-10-03 18:52 | PC.NURSE ---
patient a&ox3, vss, pt c/o 6-03/14 rt abd, ivf hung per order, pt medicated per order, call king within reach, will continue to monitor
[2023-10-03 20:13] VITALS: BP 117/62; PULSE 94; RESP 16; TEMP 36.6; O2SAT 97
== END 2023-10-03 21:30 | disposition home or self-care (01) ==
PROVIDERS: Physician Assistant Medical; Emergency Provider Emergency Medicine
DX: K29.70 Gastritis, unspecified, without bleeding (principal); R10.11 Right upper quadrant pain; R10.13 Epigastric pain; K42.9 Umbilical hernia without obstruction or gangrene; Z11.52 Encounter for screening for COVID-19; Z79.899 Other long term (current) drug therapy
CPT/HCPCS: 74176; 76705; 80053; 81003; 81025; 83690; 83735; 85025; 85652; 86140; 87502; 87635; 96361; 96374; 96375; 99284; J1885; J2405